=== PATIENT | female | born 1940 | race Caucasian/White ===

== ENCOUNTER 2016-07-11 10:54 | Outpatient (CLI) | payer OTHER ==
--- NOTE | 2016-07-11 11:15 | DIAGNOSTIC IMAGING REPORT ---
PROCEDURE: XR CHEST 2 VIEW INDICATION: COUGH CHRONIC TECHNIQUE: PA and lateral view. COMPARISON: None. FINDINGS: Lungs are clear. Cardiovascular structures are normal. Bony thorax is unremarkable. IMPRESSION: 1. Negative chest.
== END 2016-07-11 23:00 ==
LOC: XR SRH 10:54
DX: R05 Cough (principal)